=== PATIENT | male | born 1940 | race Caucasian/White ===

== ENCOUNTER 2019-10-26 15:44 | Inpatient (IN) | payer MEDICARE, OTHER ==
[~2019-10-26] VITALS: Ht 182.9 cm; Wt 85.7 kg
[2019-10-26] MEDS ORDERED: AUGMENTIN 875-1 EACH PO (16:05)
[2019-10-26] MEDS ORDERED: COLACE100 MG PO (16:06)
[2019-10-26] MEDS ORDERED: MECLIZINE HCL25 M1 PO (16:07)
[2019-10-26] MEDS ORDERED: CULTURELLE KID1 EAC1 PO (16:07)
[2019-10-26] MEDS ORDERED: PROTONIX40 M2 PO (16:16)
[2019-10-26] MEDS ORDERED: NORCO 5-325 TA1 EAC1 PO (16:19)
[2019-10-26] MEDS ORDERED: LIPITOR40 MG PO (16:20)
[2019-10-26] MEDS ORDERED: ANORO ELLIPTA1 EACH INH (16:20)
[2019-10-26] MEDS ORDERED: BYDUREON P2 MG/0.65 (16:22)
[2019-10-26] MEDS ORDERED: CALCIUM 500 +1 EAC6 PO (16:25)
[2019-10-26] MEDS ORDERED: VITAMIN D21250 MC1 PO (16:26)
[2019-10-26] MEDS ORDERED: GLYBURIDE 5 MG T5 M1 PO (16:27)
[2019-10-26] MEDS ORDERED: SUPER THERAVIT1 EACH PO (16:27)
[2019-10-26 18:15] VITALS: BP 112/61
--- NOTE | 2019-10-27 02:04 | NUR ---
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 HOB UP IN BED.WANTS SHIRT OFF @ NIGHT.PULL UPS ON. 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
[2019-10-27 04:40] LABS: HEMOGLOBIN 9.6 gm/dL (14.0-18.0); MCH 25.9 pg (26.0-34.0); MCHC 33.1 g/dL (28.0-37.0); MCV 78.2 fL (80.0-100.0); MPV 7.7 fl. (7.2-11.1); RBC 3.71 mil/uL (4.50-6.00); RDW-CV 17.9 % (10.5-14.5)
[2019-10-27 04:55] LABS: CALCIUM 8.4 mg/dL (8.5-10.1); CREATININE 1.1 mg/dL (0.6-1.3)
--- NOTE | 2019-10-27 05:12 | NUR ---
SLEPT EARLY @ 2114.AWAkE 4X DURING NIGHT.TWICE FOR BRP X2 W/ SBA,ONCE TO CHANGE SHIRT DUE TO PERSPIRING & 4TH TIME @ 0400.PRN XANAX GIVEN PER PEG @ 0417.SLEEPING @ 434.TOOK ALL JUAN.ENSURE HS SNACK @ 1939.
--- NOTE | 2019-10-27 05:23 | NUR ---
SLEEPING SINCE 2200 & SLEPT ALL NIGHT.AWAKENED BY LAB FOR BLOOD DRAW @ 0400. BRP W/ SBA X2.REFUSED HS SNACK.
[2019-10-27 08:24] VITALS: BP 116/65
--- NOTE | 2019-10-27 09:56 | NUR ---
Nutrition: pt admit to rehab last pm. Wt is WNL per %IBW. Nsg reported pt wtih good appetite. BG 102-164, BMP reviewed. Meds reviewed. Assess at low nutrition risk at this time, RD will review chart weekly for team report.
--- NOTE | 2019-10-27 16:26 | NUR ---
SW met with pt to complete initial assessment, introduce self, and SW role on in pt rehab. Pt alert, oriented. Pt was upset that he though he didn't need to use RW in the room but that he was told by nursing that pt does need to use RW until futher notice for pt safety. Pt goes by "Dae". Pt has RW at home but has not needed to use prior to hospitalization; he received walker 12 years ago. Pt has hx of rehab but no known history of HH or SNF. Pt lives at home with and did not express any dc needs or concerns at this time. SW provided welcome packet and pt signed irf kaye consent form. SW to continue to follow to assist with safe dc planning.
--- NOTE | 2019-10-27 18:07 | NUR ---
AM ASSESSMENT AND VITAL SIGNS COMPLETED DOCUMENTED. PT WORKED WITH PT, OT AND ST. PT IS SLIGHTLY UNSTEADY AT TIMES BUT HAS BEEN CLEARED TO AMBULATE WITHOUT A WALKER BY THERAPY. PRN PAIN MEDICATION GIVEN ONCE WITH GOOD RELIEF. FALL PRECAUTIONS AND HOURLY ROUNDING CONTINUE.
[2019-10-27 20:25] VITALS: BP 81/46
--- NOTE | 2019-10-27 21:50 | NUR ---
ASSUMED CARE AT 1930. RESTING IN BED. TURNS SELF. TAKES PILLS WHOLE WITH WATER WITHOUT DIFF. TWO DRESSINGS TO ABD C/D/I, OTHER LAP SITES C/D/I. TREMORS NOTED IN HANDS. APPLIED OWN CPAP AT HS. NO C/O PAIN. REFUSED HS SNACK. HOURLY ROUNDS CONTINUE. BED ALARM ON. CALL LITE IN REACH.
--- NOTE | 2019-10-28 06:05 | NUR ---
APPEARED TO BE SLEEPING MOST OF THE SHIFT. TURNS SELF. NO C/O PAIN. HOURLY ROUNDS CONTINUE. CALL LITE IN REACH. BED ALARM ON.
[2019-10-28 07:59] VITALS: BP 121/64
--- NOTE | 2019-10-28 17:35 | NUR ---
ALERT AND ORIENTED X4. UP WITH STAND BY ASSIST. DENIED NEED FOR PAIN MEDICATION WHEN OFFERED. HAS 4 LAP SITE AREAS ON ABD. 2 LAP SITE AREAS HAVE DRY DRESSINGS INTACT. 2 HAVE DERMABOND INTACT. MIDLINE INCISION HEALED. NO C/O N/V. HAS TREMOR WITH RIGHT HAND. CONTINENT OF BOWEL AND BLADDER. CALL LIGHT WITHIN REACH. BED ALARM AND CHAIR BEING USED.
[2019-10-28 19:30] VITALS: BP 108/61
--- NOTE | 2019-10-29 05:22 | NUR ---
ASSUMED CARE AT 1920. ALERT AND ORIENTED. PLEASANT. DENIED ANY NEED FOR PAIN MEDS. ABD INCISIONS HEALING. SBA WITH GAIT BELT. UP TO BATHROOM. DOES OWN CARES. SLEPT WELL. CALL LIGHT IN REACH AND BED ALARM ON.
[2019-10-29 07:50] VITALS: BP 118/70
--- NOTE | 2019-10-29 16:05 | NUR ---
ASSUMED CARE AT 0730. ALERT ORIENTED PLEASANT COOPERATIVE. 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 TRANSFERS WITH SBA G BELT AMBULATES TO BR HAD HUGE SOFT SEMIFORMED BM AND VOIDED. ABLE TO DO HYGEINE AND CLOTHING ADJUSTMENTS. FEEDS SELF TAKES MEDS WITHOUT DIFFICULTY. UP IN RECLINER AND RESTED IN BED AT INTERVALS. FAMILY HERE FOR LUNCH PIZZA AND STAFF WAS INVITED TO JOIN IN PIZZA. KVNG CORREA DOES WANT TO TAKE HIS A REDS FOR MACULAR DEGENERATION ORDER OBTAINED. DRESSINGS D/I TO LAP SITES AND OTHERS HAVE DERMABOND.
[2019-10-29 19:15] VITALS: BP 98/62
--- NOTE | 2019-10-30 05:24 | NUR ---
ASSUMED CARES AT 1920. ALERT AND ORIENTED. PLEASANT. DENIED ANY PAIN. SBA WITH GAIT BELT. UP TO BATHROOM OR USED URINAL. CPAP AT NIGHT. NO ISSUES OVERNIGHT. SLEPT WELL. CALL LIGHT IN REACH AND BED ALARM ON.
[2019-10-30 07:59] VITALS: BP 110/62
--- NOTE | 2019-10-30 17:39 | NUR ---
UP WITH STAND BY ASSIST. ALERT AND ORIENTED X4. DENIES PAIN WHEN ASKED. 3 ABDOMINAL LAP SITES APROXIMATED WELL WITH SURGICAL GLUE. 2 LAP SITES HAVE GAUZE DRESSING DRY AND INTACT. MIDLINE INCISION HEALED. USES CPAP AT NIGHT. TEMORS NOTED IN HANDS. USES CALL LIGHT WHICH IS WITHIN REACH. CHAIR AND BED ALARM USED. PROGRESSING TOWARD DISCHARGE GOAL.
[2019-10-30 19:30] VITALS: BP 107/66
--- NOTE | 2019-10-31 05:40 | NUR ---
ASSUMED CARE AT 1920. ALERT AND ORIENTED. PLEASANT. DENIED ANY NAUSEA OR PAIN. SBA WITH GAIT BELT. USED URINAL OR UP TO BATHROOM. CPAP AT NIGHT. ABD INCISIONS HEALING WITH NO SIGNS OF DRAINAGE. SLEPT MOST OF THE NIGHT. CALL LIGHT IN REACH AND BED ALARM ON.
[2019-10-31 08:00] VITALS: BP 114/57
--- NOTE | 2019-10-31 16:24 | NUR ---
AM ASSESSMENT AND VITAL SIGNS COMPLETED DOCUMENTED. PT HAS WORKED WITH PT, OT AND ST. PT IS UP WITH SUPERVISION, NO CANE OR WALKER NEEDED BUT HE FORGETS HE CAN'T GET UP WITHOUT STAFF BEING THERE. FALL PRECAUTIONS AND HOURLY ROUNDING CONTINUE.
[2019-10-31 19:25] VITALS: BP 106/62
--- NOTE | 2019-11-01 02:10 | NUR ---
ASSUMED CARE @ 1921-10/31-.SITS IN RECLINER WATCHING TV.ZINC OINT.APPLIED TO DRY SKIN TEAR LEFT COCCYX @ 2019.SBA FOR ALL TRANSFERS & TOILETING.WEARS OWN SUPPLY FLORES PULL UPS.BED ALARM PUT ON @ 2024.PATIENT PUTS OWN C PAP @ 2024 FOR NIGHT USE.WANTS SHIRT & PANTS OFF @ NIGHT.ON HOURLY ROUNDS.
--- NOTE | 2019-11-01 05:25 | NUR ---
SLEEPING SINCE 2099 & SLEPT GOOD ALL NIGHT.BRP X1 ONLY BEFORE HS @ 2019 W/ LARGE BM.TURNS SELF @ NIGHT.TOOK ALL JUAN.ICE CREAM HS SNACK.
[2019-11-01 07:42] VITALS: BP 125/66
[2019-11-01 08:50] VITALS: BP 108/56
[2019-11-01 09:00] VITALS: BP 108/61
[2019-11-01 09:32] LABS: ABSOLUTE EOSINOPHILS 0.2 thou/uL (0.0-0.7); ABSOLUTE LYMPHOCYTES 1.7 thou/uL (0.8-5.3); ABSOLUTE MONOCYTES 0.4 thou/uL (0.0-1.2); ABSOLUTE NEUTROPHILS 7.7 thou/uL (1.6-8.1); BASOPHILS 0.2 %; EOSINOPHILS 1.5 %; HEMATOCRIT 30.7 % (42.0-52.0); HEMOGLOBIN 9.8 gm/dL (14.0-18.0); LYMPHOCYTES 17.2 %; MCH 25.3 pg (26.0-34.0); MCHC 31.8 g/dL (28.0-37.0); MCV 79.6 fL (80.0-100.0); MONOCYTES 4.1 %; MPV 8.4 fl. (7.2-11.1); NUCLEATED RBCS 0 /100WBC; PLATELET COUNT* 556 thou/uL (150-400); RBC 3.85 mil/uL (4.50-6.00); RDW-CV 18.7 % (10.5-14.5)
[2019-11-01 09:33] LABS: CALCIUM 8.1 mg/dL (8.5-10.1); CREATININE 1.1 mg/dL (0.6-1.3); POTASSIUM 4.1 mmol/L (3.5-5.1)
[2019-11-01 09:37] LABS: ALBUMIN 2.6 g/dL (3.4-5.0); TOTAL BILIRUBIN 0.3 mg/dL (<0.1-1.0); TOTAL PROTEIN 6.7 g/dL (6.4-8.2)
--- NOTE | 2019-11-01 09:58 | EKG ---
[place] [address] ELECTROCARDIOGRAM REPORT Name: NATE GUERIN Room: [address] ADM IN M.R.#: [id number] Admission: 10/26/19 Attend Phys: Leon Bolden MD Discharge: Date of : 44 Report #: [id number] THIS REPORT FOR: //name// [facility] Test Date: 2019-11-01 Test Time: 09:11:33 Pat Name: NATE JOSEPHROHITH Department: Room: [address] Gender: M Manager Strategy: [facility] : 1940 Requested By: Sea Ruelas Order Number: [id number] Mansi MD: Phu Spangler Measurements Intervals [place] Rate: 83 P: 64 [place]: 168 QRS: 66 QRSD: 81 T: 68 QT: 395 QTc: 465 Interpretive Statements Sinus rhythm No previous ECG available for comparison Electronically Signed On 11-01-2019 9:58:12 MILL SUPERVISOR by Phu Spangler [email or web address] <ELECTRONICALLY SIGNED> By: Phu Spangler MD, [facility] 11/01/19 0958 0911 0911 Phu Spangler MD, FACC /EPI
--- NOTE | 2019-11-01 17:04 | NUR ---
REGGIE and Dr Bolden met with pt and pt to review team conference summary and plan for pt to remain on rehab unit a few more days with exact dc date to be discussed tomorrow since this morning pt experienced need for rapid response and wants to ensure medical stability prior to setting a dc date. DC planning possibly for Wednesday? Pt and pt okay with plan. SW to continue to follow to assist with safe dc planning.
--- NOTE | 2019-11-01 18:20 | NUR ---
PT C/O SHARP CHEST PAINS AND SHORTNESS OF BREATH WHILE SITTING IN THE RECLINER THIS AM. PT ASSISTED INTO BED, VITAL SIGNS, O2 SAT AND BLOOD GLUCOSE OBTAINED. PHOTO EDITOR INITIATED. PT HAD LABS DRAWN, CXR AND DOPPLER OF BOTH LOWER EXTREMITIES DONE. THERAPIES WERE HELD TODAY. PT INCREASED HIS FLUID INTAKE AND STATES HE FEELS BETTER THIS EVENING. FALL PRECAUTIONS AND HOURLY ROUNDING CONTINUE.
[2019-11-01 19:00] VITALS: BP 123/66
--- NOTE | 2019-11-01 22:50 | NUR ---
PT ALERT ORIENTED. UP WITH STAND BY ASSIST. PT ATE 100% HS SNACK OF CHOCOLATE ICE CREAM. DENIES PAIN. WENT TO BED AT 2200.
--- NOTE | 2019-11-02 06:24 | NUR ---
PT SLEEPING FROM 2043-6524 WITH HOME CPAP ON.
[2019-11-02 07:49] VITALS: BP 124/63
--- NOTE | 2019-11-02 15:53 | NUR ---
AM ASSESSMENT AND VITAL SIGNS COMPLETED DOCUMENTED. PT STATES HE IS FEELING MUCH BETTER TODAY BUT STILL FEELS TIRED. QUESTIONS AND CONCERNS WERE COVERED AT LENGTH WITH PT AND HIS . SINGLE STITCH WAS REMOVED FROM LUQ SURGERY SITE AND THE IT IS WELL HEALED. PT HAS BEEN MOVED TO THE ADL AND IS NOW MOD I IN THE ROOM. HOURLY ROUNDING CONTINUES.
[2019-11-02 20:32] VITALS: BP 118/62
--- NOTE | 2019-11-03 05:34 | NUR ---
ASSUMED CARES 1920. ALERT AND ORIENTED PLEASANT. DENIED ANY PAIN. SALINE LOCK TO RIGHT AC. FLOYD IN RM. ABD INCISIONS HEALING. CPAP AT NIGHT. NO ISSUES OVERNIGHT. CALL LIGHT IN REACH AND BED ALARM ON.
[2019-11-03 08:12] VITALS: BP 107/62
--- NOTE | 2019-11-03 17:19 | NUR ---
ALERT AND ORIENTED X4. MOD INDEPENDENT IN ROOM WITHOUT DIFFICULTY. NO C/O PAIN TODAY. SOME WHEEZING NOTED IN BILATERAL LOWER LOBES THIS AM. INCENTIVE SPIROMETRY ENCOURAGED. LUNG SOUNDS BETTER THIS AFTERNOON WITHOUT WHEEZES. ABDOMINAL LAP INCISION SITES APROXIMATED WELL WITH NO S/S OF INFECTIONS. NO C/O N/V.
[2019-11-03 20:14] VITALS: BP 107/57
--- NOTE | 2019-11-04 04:58 | NUR ---
ASSUMED PT CARE AT 1930. PT ALERT AND ORIENTED X4, POLITE AND COOPERATIVE WITH CARES. MOD INDEPENDENT IN ROOM. DENIES PAIN. SALINE LOCK IN RIGHT AC. ABDOMINAL INCISIONS HEALING. WEARS HOME CPAP AT NIGHT. NO PROBLEMS OVERNIGHT. CALL LIGHT IN REACH, HOURLY ROUNDING IN PROGRESS.
[2019-11-04 05:54] LABS: % SATURATION 22 % (20-39); IRON 47 ug/dL (50-175)
[2019-11-04 07:30] VITALS: BP 129/61
[2019-11-04 20:23] VITALS: BP 103/57
--- NOTE | 2019-11-04 22:23 | NUR ---
ASSUMED CARE AT 1930. PATIENT WAS VISITING WITH FAMILY IN DINING ROOM, THEN CONTINUED INTO HIS OWN ROOM. FAMILY IS FROM [place] AND IS LEAVING EARLY IN THE MORNING FOR A 12 HOUR TRIP. PATIENT MOD I IN ROOM. TAKES PILLS WHOLE WITH WATER. NO C/O PAIN. ABD LAP SITES C/D/I WITH DERMABOND. SALINE LOCK TO RT AC INTACT. REFUSED COLACE DUE TO SOFT BMS. HOURLY ROUNDS CONTINUE. BED ALARM ON. CALL LITE IN REACH.
[2019-11-05 05:02] LABS: ALBUMIN 2.3 g/dL (3.4-5.0); CALCIUM 7.8 mg/dL (8.5-10.1); CREATININE 1.1 mg/dL (0.6-1.3); MAGNESIUM 1.9 mg/dL (1.8-2.4); POTASSIUM 3.8 mmol/L (3.5-5.1)
--- NOTE | 2019-11-05 06:31 | NUR ---
SLEPT MOST OF THE SHIFT. TURNS SELF. MOD I IN ROOM. NO C/O PAIN. HOURLY ROUNDS CONTINUE. CALL LITE IN REACH.
[2019-11-05 07:31] VITALS: BP 109/48
[2019-11-05 19:15] VITALS: BP 109/58
--- NOTE | 2019-11-05 19:30 | NUR ---
SITTING UP IN CHAIR WATCHING TV AND SHOWING A MAGIC TRICK TO THE SECOND WATCH SERGEANT. DENIES DISCOMFORT. TOOK MEDICATIONS WHOLE WITH WATER. SNACK PROVIDED. MODIFIED INDEPENDENT IN HIS ROOM.
--- NOTE | 2019-11-06 05:04 | NUR ---
RESTED QUIETLY. NO COMPLAINTS VOICED. HOURLY ROUNDING IN PROGRESS.
[2019-11-06 08:12] VITALS: BP 119/63
[2019-11-06 12:29] VITALS: BP 119/63
[2019-11-06 12:56] VITALS: BP 119/63
[2019-11-06] MEDS ORDERED: PEPCID20 MG PO (13:23)
[2019-11-06] MEDS ORDERED: AUGMENTIN 875-1 EACH PO (13:25)
[2019-11-06] MEDS ORDERED: ELIQUIS5 MG PO (13:25)
[2019-11-06 13:54] VITALS: BP 119/63
[2019-11-06 14:13] VITALS: BP 119/63
--- NOTE | 2019-11-06 14:18 | NUR ---
Pt to dc home with today and HH services to follow. Pt preference for [facility] and SW faxed [facility] intake the referral/orders/med list/dc summary.
[2019-11-06 14:40] VITALS: BP 119/63
--- NOTE | 2019-11-06 15:25 | NUR ---
ASSUMED CARE AT 0730. ALERT ORIENTED PLEASANT COOPERATIVE. HX OF OMENTAL INFARCT DEBILITY. INCISIONS LAP HEALED DURABOND X 3. MODIFIED INDEPENDENT IN ROOM. PT. FEEDS SELF TAKES MEDS WITHOUT DIFFICULTY. HAS HX OF TREMORS UPPER EXTREMETIES. PARTICIPATING IN THERAPIES THIS A.M. DENIES PAIN OR CONCERNS. DISCHARGED AT 1440 PER W/C WITH BELONGINGS SCRIPTS D/C INSTRUCTIONS. EDUCATION SHEETS FOR NEW MEDS GIVEN. VERBALIZED UNDERSTANDING OF D/C INSTRUCTIONS ALLOWED TIME FOR QUESTIONS. DISCHARGED WITH HOME HEALTH PER ORDERS.
[2019-11-08 15:58] VITALS: BP 119/63
--- NOTE | 2019-11-08 16:17 | NUR ---
REFAXED REFERRAL TO [facility]. [phone]. CONFIRMED WITH CHARLIE/[place] THAT THEY RECEIVED.
== END 2019-11-06 14:40 | disposition home health service (06) | DRG 393 ==
LOC: M.REH 15:44
PROVIDERS: Family Medicine; Internal Medicine; ADMIT Physical Medicine & Rehabilitation
DX: K55.069 Acute infarction of intestine, part and extent unspecified (principal); A41.9 Sepsis, unspecified organism; R53.81 Other malaise; I10 Essential (primary) hypertension; E78.5 Hyperlipidemia, unspecified; G25.0 Essential tremor; G47.33 Obstructive sleep apnea (adult) (pediatric); D64.9 Anemia, unspecified; M19.90 Unspecified osteoarthritis, unspecified site; J45.909 Unspecified asthma, uncomplicated; Z90.49 Acquired absence of other specified parts of digestive tract; Z85.038 Personal history of other malignant neoplasm of large intestine; Z91.041 Radiographic dye allergy status; Z88.6 Allergy status to analgesic agent; Z88.8 Allergy status to other drugs, medicaments and biological substances; Z85.828 Personal history of other malignant neoplasm of skin; Z85.46 Personal history of malignant neoplasm of prostate; Z98.84 Bariatric surgery status; Z98.42 Cataract extraction status, left eye; Z98.41 Cataract extraction status, right eye; Z98.52 Vasectomy status; E11.40 Type 2 diabetes mellitus with diabetic neuropathy, unspecified; E55.9 Vitamin D deficiency, unspecified; E11.649 Type 2 diabetes mellitus with hypoglycemia without coma; T50.905A Adverse effect of unspecified drugs, medicaments and biological substances, initial encounter; Y92.89 Other specified places as the place of occurrence of the external cause

== ENCOUNTER 2019-11-13 10:16 | Emergency (ER) | payer MEDICARE, OTHER ==
[~2019-11-13] VITALS: Ht 182.9 cm; Wt 80.7 kg
--- NOTE | ~2019-11-13 | EKG ---
[place] [address] ELECTROCARDIOGRAM REPORT Name: OPALROHITHNATE Room: [facility]#: [id number] Admission: 11/13/19 Attend Phys: Discharge: 11/13/19 Date of : 44 Date of Service: 11/13/19 1117 Report #: [id number] THIS REPORT FOR: cc: Quinn Solis Chad W. DO Epiphany, Epiphany MD ~ THIS REPORT FOR: //name// [facility] ED Test Date: 2019-11-13 Test Time: 11:17:23 Pat Name: NATE GUERIN Department: Room: Gender: M Aemt: KIP : 1940 Requested By: Chris Maier Order Number: [id number] MD: Measurements Intervals [place] Rate: 69 P: 55 [place]: 169 QRS: 62 QRSD: 76 T: 62 QT: 399 QTc: 428 Interpretive Statements Sinus rhythm ST elevation suggests acute pericarditis Compared to ECG 11/01/2019 09:11:33 ST (T wave) deviation now present [email or web address] By: 16 16 Epiphany Epiphany, /CHARMAINE
[~2019-11-13 10:16] MED LIST: ANORO ELLIPTA1 EACH INH; AUGMENTIN 875-1 EACH PO; BYDUREON P2 MG/0.65; CALCIUM 500 +1 EAC6 PO; COLACE100 MG PO; CULTURELLE KID1 EAC1 PO; ELIQUIS5 MG PO; GLYBURIDE 5 MG T5 M1 PO; LIPITOR40 MG PO; MECLIZINE HCL25 M1 PO; NORCO 5-325 TA1 EAC1 PO; PEPCID20 MG PO; PROTONIX40 M2 PO; SUPER THERAVIT1 EACH PO; VITAMIN D21250 MC1 PO
[2019-11-13 11:08] LABS: ABSOLUTE BASOPHILS 0.1 thou/uL (0.0-0.2); ABSOLUTE EOSINOPHILS 0.3 thou/uL (0.0-0.7); ABSOLUTE LYMPHOCYTES 1.2 thou/uL (0.8-5.3); ABSOLUTE MONOCYTES 0.5 thou/uL (0.0-1.2); ABSOLUTE NEUTROPHILS 5.4 thou/uL (1.6-8.1); BASOPHILS 0.7 %; EOSINOPHILS 3.9 %; HEMATOCRIT 28.1 % (42.0-52.0); HEMOGLOBIN 9.2 gm/dL (14.0-18.0); LYMPHOCYTES 16.1 %; MCH 26.6 pg (26.0-34.0); MCHC 32.7 g/dL (28.0-37.0); MCV 81.3 fL (80.0-100.0); MONOCYTES 6.6 %; MPV 8.5 fl. (7.2-11.1); NUCLEATED RBCS 0 /100WBC; PLATELET COUNT* 296 thou/uL (150-400); POLYS 72.7 %; RBC 3.45 mil/uL (4.50-6.00); RDW-CV 21.4 % (10.5-14.5); WBC 7.4 thou/uL (4.0-11.0)
[2019-11-13 11:20] LABS: CALCIUM 7.9 mg/dL (8.5-10.1); POTASSIUM 4.7 mmol/L (3.5-5.1)
[2019-11-13 11:24] LABS: INFLUENZA A ANTIGEN Negative (Negative); INFLUENZA B ANTIGEN Negative (Negative)
[2019-11-13 11:27] LABS: ALBUMIN 2.5 g/dL (3.4-5.0); TOTAL BILIRUBIN 0.3 mg/dL (<0.1-1.0); TOTAL PROTEIN 6.2 g/dL (6.4-8.2)
[2019-11-13 11:41] LABS: ANISOCYTOSIS 1+; PLATELET ESTIMATE ADEQUATE
[2019-11-13 13:59] LABS: URINE BILIRUBIN NEGATIVE (Negative); URINE BLOOD NEGATIVE (Negative); URINE CLARITY CLEAR; URINE COLOR YELLOW; URINE GLUCOSE-RANDOM NEGATIVE (Negative); URINE KETONES NEGATIVE (Negative); URINE LEUKOCYTES-REFLEX NEGATIVE (Negative); URINE NITRITE-REFLEX NEGATIVE (Negative); URINE PROTEIN NEGATIVE (Negative); URINE SPECIFIC GRAVITY 1.025 (1.005-1.030); URINE UROBILINOGEN 0.2 E.U./dl (0.2-1.0)
[2019-11-13 14:14] VITALS: BP 109/60
[2019-11-13] MEDS ORDERED: MECLIZINE HCL25 M1 PO (14:15)
== END 2019-11-13 14:12 | disposition home or self-care (01) ==
LOC: M.ERS 10:16
PROVIDERS: Emergency Medicine Emergency Medical Services
DX: R42 Dizziness and giddiness (principal); R53.1 Weakness; G47.30 Sleep apnea, unspecified; J45.909 Unspecified asthma, uncomplicated; M19.90 Unspecified osteoarthritis, unspecified site; Z85.828 Personal history of other malignant neoplasm of skin; Z90.89 Acquired absence of other organs; Z90.79 Acquired absence of other genital organ(s); Z98.84 Bariatric surgery status; Z88.6 Allergy status to analgesic agent; Z91.041 Radiographic dye allergy status

== ENCOUNTER 2020-04-01 08:57 | Emergency (ER) | payer MEDICARE, OTHER ==
[~2020-04-01] VITALS: Ht 182.9 cm; Wt 78.9 kg
[2020-04-01] MEDS ORDERED: ELIQUIS2.5 MG PO (09:10)
[2020-04-01] MEDS ORDERED: BYDUREON P2 MG/0.65 (09:12)
[2020-04-01] MEDS ORDERED: BUPROPION XL150 MG PO (09:12)
[2020-04-01] MEDS ORDERED: QUESTRAN PACKET4 GM PO (09:13)
[2020-04-01] MEDS ORDERED: NEURONTIN 300M300 M2 PO (09:14)
[2020-04-01] MEDS ORDERED: IRON159 MG PO (09:15)
[2020-04-01] MEDS ORDERED: LOPERAMIDE2 MG PO (09:16)
[2020-04-01] MEDS ORDERED: METFORMIN HCL500 M3 PO (09:16)
[2020-04-01] MEDS ORDERED: ONDANSETRON ODT4 MG PO (09:17)
[2020-04-01] MEDS ORDERED: PRESERVISION A1 EAC2 PO (09:18)
[2020-04-01] MEDS ORDERED: KLOR-CON 10 ER10 MEQ PO (09:18)
[2020-04-01 09:49] LABS: ABSOLUTE EOSINOPHILS 0.1 thou/uL (0.0-0.7); ABSOLUTE LYMPHOCYTES 1.5 thou/uL (0.8-5.3); ABSOLUTE MONOCYTES 0.7 thou/uL (0.0-1.2); BASOPHILS 0.7 %; HEMATOCRIT 30.4 % (42.0-52.0); HEMOGLOBIN 10.2 gm/dL (14.0-18.0); LYMPHOCYTES 27.7 %; MCH 32.5 pg (26.0-34.0); MCHC 33.4 g/dL (28.0-37.0); MCV 97.1 fL (80.0-100.0); MONOCYTES 13.3 %; MPV 7.4 fl. (7.2-11.1); NUCLEATED RBCS 0 /100WBC; PLATELET COUNT* 204 thou/uL (150-400); POLYS 56.3 %; RBC 3.13 mil/uL (4.50-6.00); RDW-CV 16.5 % (10.5-14.5); WBC 5.3 thou/uL (4.0-11.0)
[2020-04-01 09:58] LABS: CALCIUM 8.8 mg/dL (8.5-10.1); CREATININE 1.2 mg/dL (0.6-1.3); POTASSIUM 4.3 mmol/L (3.5-5.1)
[2020-04-01 10:11] LABS: ALBUMIN 3.2 g/dL (3.4-5.0); TOTAL BILIRUBIN 0.4 mg/dL (<0.1-1.0); TOTAL PROTEIN 6.3 g/dL (6.4-8.2)
[2020-04-01 11:18] LABS: URINE BILIRUBIN NEGATIVE (Negative); URINE BLOOD NEGATIVE (Negative); URINE CLARITY CLEAR; URINE COLOR YELLOW; URINE GLUCOSE-RANDOM NEGATIVE (Negative); URINE KETONES NEGATIVE (Negative); URINE LEUKOCYTES-REFLEX NEGATIVE (Negative); URINE NITRITE-REFLEX NEGATIVE (Negative); URINE PROTEIN NEGATIVE (Negative); URINE SPECIFIC GRAVITY 1.025 (1.005-1.030); URINE UROBILINOGEN 0.2 E.U./dl (0.2-1.0)
[2020-04-01] MEDS ORDERED: MECLIZINE HCL25 M1 PO (11:25)
[2020-04-01 12:11] VITALS: BP 112/58
--- NOTE | 2020-04-02 19:18 | EKG ---
[place] [address] ELECTROCARDIOGRAM REPORT Name: NATE GUERIN Room: [facility]#: [id number] Admission: 04/01/20 Attend Phys: Discharge: 04/01/20 Date of : 44 Date of Service: 04/01/20904 Report #: [id number] THIS REPORT FOR: //name// [facility] ED Test Date: 2020-04-01 Test Time: 09:05:00 Pat Name: NATE GUERIN Department: Room: Gender: Social Worker School: : 1940 Requested By: Chris Maier Order Number: [id number] MD: Dennis Herbert Measurements Intervals [place] Rate: 89 P: 68 [place]: 168 QRS: 67 QRSD: 72 T: 66 QT: 373 QTc: 454 Interpretive Statements Sinus rhythm ST elevation, consider early repolarization Compared to ECG 11/13/2019 11:17:23 No significant changes noted Electronically Signed On 04-02-2020 17:37:42 CDT by Dennis Herbert [email or web address] <ELECTRONICALLY SIGNED> By: Dennis Herbert MD, [facility] 04/02/20 1737 0905 09 Dennis Herbert MD, [facility] /EPI
== END 2020-04-01 12:12 | disposition home or self-care (01) ==
LOC: M.ERS 08:57
PROVIDERS: Emergency Medicine Emergency Medical Services
DX: R42 Dizziness and giddiness (principal); Z88.6 Allergy status to analgesic agent; Z91.041 Radiographic dye allergy status; Z79.899 Other long term (current) drug therapy; Z98.890 Other specified postprocedural states; Z90.89 Acquired absence of other organs

== ENCOUNTER → 2020-07-10 | Outpatient (CLI) | payer MEDICARE, OTHER ==
[~2020-07-10] MED LIST changes: +BUPROPION XL150 MG PO; +ELIQUIS2.5 MG PO; +IRON159 MG PO; +KLOR-CON 10 ER10 MEQ PO; +LOPERAMIDE2 MG PO; +METFORMIN HCL500 M3 PO; +NEURONTIN 300M300 M2 PO; +ONDANSETRON ODT4 MG PO; +PRESERVISION A1 EAC2 PO; +QUESTRAN PACKET4 GM PO
--- NOTE | 2020-07-10 16:14 | 2DMMODE ---
[place] [address] 2 D/M-MODE ECHOCARDIOGRAM Name: NATE GUERIN Room: [facility]#: [id number] Admission: 07/10/20 Attend Phys: Ani Brown RN Discharge: Date of : 44 Date of Service: 07/10/20 1613 Report #: [id number] THIS REPORT FOR: cc: Hilario Cheung,Hilario Millard,Philip Vásquez MD [facility] ~ APPROVED REPORT Study performed: 07/10/2020 10:57:51 EXAM: Comprehensive 2D, Doppler, and color-flow Echocardiogram Patient Location: Out-Patient BSA: 2.02 HR: 64 bpm BP: 126/70 mmHg Other Information Study Quality: Good Indications Dyspnea 2D Dimensions IVSd: 14.23 (7-11mm) LVOT Diam: 19.75 (18-24mm) LVDd: 36.92 mm PWd: 11.49 (7-11mm) Ascending Ao: 29.75 (22-36mm) LVDs: 25.74 (25-40mm) Aortic Root: 27.94 mm Volumes Left Atrial Volume (Systole) LA ESV Index: 20.40 mL/m2 Aortic Valve AoV Peak Tom.: 0.96 m/s AO Peak Gr.: 3.68 mmHg LVOT Max P.70 mmHg AO Mean Gr.: 1.78 mmHg LVOT Mean P.81 mmHg LVOT Max V: 0.96 m/s AO V2 VTI: 21.95 cm LVOT Mean V: 0.62 m/s KENDRICK (VTI): 3.36 cm2 LVOT V1 VTI: 24.06 cm Mitral Valve E/A Ratio: 1.19 [place] [address] 2 D/M-MODE ECHOCARDIOGRAM Name: NATE GUERIN Room: [facility]#: [id number] Admission: 07/10/20 Attend Phys: Ani Brown RN Discharge: Date of : 44 Date of Service: 07/10/20 1613 Report #: [id number] MV Decel. Time: 198.91 ms MV E Max Tom.: 0.93 m/s MV PHT: 57.68 ms MVA (PHT): 3.81 cm2 TDI E/Lateral E': 8.45 E/Medial E': 9.30 Medial E' Tom.: 0.10 m/s Lateral E' Tom.: 0.11 m/s Pulmonary Valve PV Peak Tom.: 0.75 m/s PV Peak Gr.: 2.22 mmHg Left Ventricle The left ventricle is normal size. There is normal LV segmental wall motion. There is normal left ventricular wall thickness. Left ventricular systolic function is normal. The left ventricular ejection fraction is within the normal range. LVEF is 55-60%. The left ventricular diastolic function is normal. Right Ventricle The right ventricle is normal size. The right ventricular systolic function is normal. Atria The left atrium size is normal. The right atrium size is normal. Aortic Valve Mild aortic valve sclerosis. No aortic regurgitation is present. There is no aortic valvular stenosis. Mitral Valve The mitral valve is normal in structure. Mild mitral regurgitation. No evidence of mitral valve stenosis. Tricuspid Valve The tricuspid valve is normal in structure. There is no tricuspid valve regurgitation noted. Pulmonic Valve The pulmonary valve is normal in structure. There is no pulmonic valvular regurgitation. Great Vessels The aortic root is normal in size. IVC is [place] [address] 2 D/M-MODE ECHOCARDIOGRAM Name: NATE GUERIN Room: [facility]#: [id number] Admission: 07/10/20 Attend Phys: Ani Brown RN Discharge: Date of : 44 Date of Service: 07/10/20 1613 Report #: [id number] collapses >50% with inspiration. Pericardium There is no pericardial effusion. <Conclusion> The left ventricle is normal size. There is normal left ventricular wall thickness. Left ventricular systolic function is normal. The left ventricular ejection fraction is within the normal range. LVEF is 55-60%. The left ventricular diastolic function is normal. The right ventricle is normal size. The left atrium size is normal. Mild aortic valve sclerosis. No aortic regurgitation is present. There is no aortic valvular stenosis. The mitral valve is normal in structure. Mild mitral regurgitation. The tricuspid valve is normal in structure. IVC is normal in size and collapses >50% with inspiration. There is no pericardial effusion. There is normal LV segmental wall motion. <ELECTRONICALLY SIGNED> By: Philip Salguero MD, FACC 07/10/20 1613 1613 161 Philip Salguero MD, FACC /INF
--- NOTE | 2020-07-10 18:04 | CARDNUC ---
[place] [address] CARDIAC NUCLEAR IMAGING REPORT Name: NATE GUERIN Sola Room: [facility]#: [id number] Admission: 07/10/20 Attend Phys: Ani Brown RN Discharge: Date of : 44 Date of Service: 07/10/20 1804 Report #: [id number] THIS REPORT FOR: cc: Hilario Cheung Vincent R. DO Biggs, F. Douglas MD [facility] ~ APPROVED REPORT Study performed: 07/10/2020 10:02:22 Exam: Nuclear Stress Test Indication: Dyspnea Stress Tech: Cat Tamez Stress Nurse: Harriet Weber RN NM Tech:FRANK Mueller Ht: 6 ft 0 in Wt: 181 lbs BSA: 2.04 m2 BMI: 24.54 Medical History Medical History: CAD non obstructive, Diabetic Noninsulin, , Hyperlipidemia, orthostatic hypotension Medications: eliquis, atorvastatin, k-dur, midodrine Allergies: ivp dye Cardiac Risk Factors: Current Smoker, Diabetes (non-insulin), Hyperlipidemia, Age Exercise History: Sedentary Stress Test Details Stress Test: Pharmacologic stress testing performed using 0.4 mg of regadenoson per 5 mL given IV over 10 seconds. Reason for pharmacologic stress test: physical limitation. HR Resting HR: 64 bpm Max Heart Rate (APMHR): 142 bpm Max HR Achieved: 94 bpm Target HR (85% APMHR): 120 bpm % of APMHR: 66 Recovery HR: 88 bpm HR response to stress: Normal HR response to stress BP Resting BP: 126/70 mmHg Max BP: 106/61 [place] [address] CARDIAC NUCLEAR IMAGING REPORT Name: CRYSTAL GUERINJOHN PAUL Selby Room: [facility]#: [id number] Admission: 07/10/20 Attend Phys: Ani Brown RN Discharge: Date of : 44 Date of Service: 07/10/20 1804 Report #: [id number] BP response to stress: Normal blood pressure response to stress. ECG Resting ECG: Sinus Rhythm with early repolarization changes Stress ECG: Sinus Rhythm with early repolarization changes ST Change: None Arrhythmia: VPC's Recovery ECG: Sinus Rhythm with early repolarization changes Recovery ST Change: None Recovery Arrhythmia: VPCs Clinical Reason for Termination: Completed protocol Stress Symptoms: None Stress ECG Conclusion Normal hemodynamic response to pharmacologic stress. Clinical: Non-ischemic Non-diagnostic EKG stress due to failure to attain target HR. NM EXAM: Myocardial Perfusion REST/STRESS Imaging Protocol: Rest Tc-99m/Stress Tc-99m 1 day Resting Data Rest SPECT myocardial perfusion imaging was performed in supine position 30 minutes following the intravenous injection of 10.6 mCi of Tc-99m Sestamibi. Time of rest injection: 0745 Date: 07/10/2020 The images were gated to evaluate regional wall motion and calculate left ventricular ejection fraction. Administration Route: IV Administration Site: Right AC Pharmacologic Stress Pharmacologic stress test was performed by injecting Regadenoson 0.4 mg IV push followed by the intravenous injection of 31.4 mCi of Tc-99m Sestamibi. Time of stress injection: 1010 Date: 07/10/2020 Administration Route: IV Administration Site: Right AC Gated Stress SPECT was performed 40 minutes after stress injection. The images were gated to evaluate regional [place] [address] CARDIAC NUCLEAR IMAGING REPORT Name: NATE GUERIN Room: [facility]#: [id number] Admission: 07/10/20 Attend Phys: Ani Brown RN Discharge: Date of : 44 Date of Service: 07/10/20 1804 Report #: [id number] left ventricular ejection fraction. Prone imaging was performed. Study Quality Study: Good Artifact: Moderate Diaphragmatic artifact Lung Uptake: Normal Study Data At rest, the left ventricular ejection fraction was 67%.. Post stress, the left ventricular ejection was 78%.. SSS: 2 SRS: 4 SDS: -2 TID = 0.86. Perfusion Resting study demonstrated a large in size and moderate intensity inferior defect. The post-rest images demonstrate a moderate in size The resting study demonstrated a large in size and moderate intensity inferior defect. The post-rest images demonstrate a moderate to large in size mild to moderate in intensity inferior defect or less impressive inferior defect prone images were obtained and are normal. There were no reversible defects seen there was no evidence of myocardial ischemia. Images were reviewed using [employer]. Wall Motion Normal left ventricular wall motion. Nuclear Conclusion ECG Findings: non-diagnostic Clinical Findings: negative for ischemia Nuclear Findings: negative for ischemia Exercise Capacity: not assessed Left Ventricular Function: normal Risk Study: low Normal study. No scintigraphic evidence for myocardial ischemia or scar. <Conclusion> Normal hemodynamic [place] [address] CARDIAC NUCLEAR IMAGING REPORT Name: NATE GUERIN Room: [facility]#: [id number] Admission: 07/10/20 Attend Phys: Ani Brown RN Discharge: Date of : 44 Date of Service: 07/10/201803 Report #: [id number] Clinical: Non-ischemic Non-diagnostic EKG stress due to failure to attain target HR. <ELECTRONICALLY SIGNED> By: Isaías Raman MD, [facility] 07/10/201803 03 1804 Isaías Raman MD, FACC /INF
== END ==
LOC: M.CRD 06-27 14:29 → M.NUC 07:28
PROVIDERS: ATTEND Registered Nurse
DX: I34.0 Nonrheumatic mitral (valve) insufficiency (principal); I25.84 Coronary atherosclerosis due to calcified coronary lesion; R06.09 Other forms of dyspnea; I25.10 Atherosclerotic heart disease of native coronary artery without angina pectoris

== ENCOUNTER → 2020-09-23 | Outpatient (CLI) | payer OTHER ==
[2020-09-23 09:04] LABS: ALBUMIN 3.6 g/dL (3.4-5.0); CALCIUM 8.1 mg/dL (8.5-10.1); CREATININE 0.9 mg/dL (0.6-1.3); POTASSIUM 3.3 mmol/L (3.5-5.1); TOTAL BILIRUBIN 0.6 mg/dL (<0.1-1.0); TOTAL PROTEIN 6.9 g/dL (6.4-8.2)
[2020-09-23 09:10] LABS: URINE BILIRUBIN NEGATIVE (Negative); URINE BLOOD 2+ (Negative); URINE CLARITY CLEAR; URINE COLOR YELLOW; URINE GLUCOSE-RANDOM NEGATIVE (Negative); URINE KETONES NEGATIVE (Negative); URINE LEUKOCYTES TRACE (Negative); URINE NITRITE NEGATIVE (Negative); URINE PROTEIN TRACE (Negative); URINE SPECIFIC GRAVITY 1.025 (1.005-1.030); URINE UROBILINOGEN 0.2 E.U./dl (0.2-1.0)
[2020-09-23 09:55] LABS: BACTERIA 1-9 Few /HPF (None Seen); MUCUS None Seen strn/LPF (None Seen); SQUAMOUS 4-10 Moderate /LPF (0-3); URINE WBC 0-5 Rare /HPF (0-5)
[2020-09-23 09:56] LABS: CASTS None Seen /LPF (None Seen); CRYSTALS None Seen /LPF (None Seen)
== END ==
LOC: M.LAB 08:32
PROVIDERS: ATTEND Orthopaedic Surgery
DX: E11.9 Type 2 diabetes mellitus without complications (principal)

== ENCOUNTER 2020-10-02 14:46 | Emergency (ER) | payer MEDICARE, OTHER ==
[~2020-10-02] VITALS: Ht 182.9 cm; Wt 83.7 kg
[2020-10-02 15:39] LABS: ABSOLUTE BASOPHILS 0.1 thou/uL (0.0-0.2); ABSOLUTE EOSINOPHILS 0.3 thou/uL (0.0-0.7); ABSOLUTE LYMPHOCYTES 1.5 thou/uL (0.8-5.3); ABSOLUTE MONOCYTES 0.6 thou/uL (0.0-1.2); ABSOLUTE NEUTROPHILS 2.9 thou/uL (1.6-8.1); EOSINOPHILS 5.1 %; HEMATOCRIT 31.1 % (42.0-52.0); HEMOGLOBIN 10.2 gm/dL (14.0-18.0); LYMPHOCYTES 27.8 %; MCH 29.5 pg (26.0-34.0); MCHC 32.6 g/dL (28.0-37.0); MCV 90.6 fL (80.0-100.0); MONOCYTES 10.7 %; MPV 8.2 fl. (7.2-11.1); NUCLEATED RBCS 0 /100WBC; PLATELET COUNT* 186 thou/uL (150-400); POLYS 55.4 %; RBC 3.44 mil/uL (4.50-6.00); RDW-CV 14.3 % (10.5-14.5); WBC 5.2 thou/uL (4.0-11.0)
[2020-10-02 15:49] LABS: CREATININE 1.4 mg/dL (0.6-1.3); POTASSIUM 3.2 mmol/L (3.5-5.1)
[2020-10-02 15:54] LABS: ALBUMIN 3.2 g/dL (3.4-5.0); TOTAL BILIRUBIN 0.3 mg/dL (<0.1-1.0)
[2020-10-02 16:01] LABS: INFLUENZA A ANTIGEN Negative (Negative); INFLUENZA B ANTIGEN Negative (Negative)
[2020-10-02 16:24] LABS: APTT 27.1 Seconds (25.0-31.3); PROTIME 11.1 Seconds (9.20-11.50)
--- NOTE | 2020-10-02 16:38 | EKG ---
[place] [address] ELECTROCARDIOGRAM REPORT Name: NATE GUERIN Room: [facility]#: [id number] Admission: 10/02/20 Attend Phys: Discharge: Date of : 44 Date of Service: 10/02/20 1514 Report #: [id number] THIS REPORT FOR: //name// [facility] ED Test Date: 2020-10-02 Test Time: 15:14:06 Pat Name: NATE GUERIN Department: Room: Gender: Vigoureux Printer: : 1940 Requested By: Cheyenne Phillips Order Number: [id number] MD: Phu Spangler Measurements Intervals [place] Rate: 70 P: 62 [place]: 149 QRS: 63 QRSD: 75 T: 69 QT: 420 QTc: 454 Interpretive Statements Sinus rhythm early repolarization Abnormal R-wave progression, early transition Compared to ECG 04/01/2020 09:05:00 no change Electronically Signed On 10-02-2020 16:38:26 PET FEEDER by Phu Spangler [email or web address] <ELECTRONICALLY SIGNED> By: Phu Spangler MD, [facility] 10/02/20 1638 1514 1514 Phu Spangler MD, [facility] /EPI
[2020-10-02 16:49] LABS: ESR (SEDRATE) 15 mm/hr (0-20)
[2020-10-02 18:35] VITALS: BP 133/72
== END 2020-10-02 18:35 | disposition home or self-care (01) ==
LOC: M.ERS 14:46
PROVIDERS: Nurse Practitioner Family
DX: R51.9 Headache, unspecified (principal); Z20.828 Contact with and (suspected) exposure to other viral communicable diseases; J45.909 Unspecified asthma, uncomplicated; M19.90 Unspecified osteoarthritis, unspecified site; G47.30 Sleep apnea, unspecified; Z90.89 Acquired absence of other organs; Z85.038 Personal history of other malignant neoplasm of large intestine; Z88.6 Allergy status to analgesic agent; Z91.041 Radiographic dye allergy status; Z88.8 Allergy status to other drugs, medicaments and biological substances; Z86.2 Personal history of diseases of the blood and blood-forming organs and certain disorders involving the immune mechanism; Z85.46 Personal history of malignant neoplasm of prostate

== ENCOUNTER → 2020-10-24 | Outpatient (CLI) | payer OTHER | LOC: M.RAD 11:24 | PROVIDERS: ATTEND Orthopaedic Surgery | DX: M51.35 Other intervertebral disc degeneration, thoracolumbar region (principal); M13.80 Other specified arthritis, unspecified site; M48.05 Spinal stenosis, thoracolumbar region; M54.5 Low back pain ==

== ENCOUNTER → 2020-12-27 | Outpatient (CLI) | payer MEDICARE, OTHER | LOC: M.RAD 07:49 | PROVIDERS: ATTEND Specialist | DX: R10.31 Right lower quadrant pain (principal); R53.1 Weakness ==